=== PATIENT | female | born 1955 | race African-American/Black ===

== ENCOUNTER 2016-11-11 03:11 | Inpatient (IN) | payer MEDICAID ==
[2016-11-11] VITALS (7 sets, daily range): BP systolic 116–148; BP diastolic 50–101
[~2016-11-11] VITALS: Ht 160 cm; Wt 74.8 kg
[~2016-11-11 03:11] MED LIST: ADVAIR 250-501 EACH INH; ALBUTEROL SULF8.5 GM INH; PREDNISONE20 MG ORAL
[2016-11-11] MEDS ORDERED: Ipratropium 0.02% Inh Soln 2.5ml UD HHN ONE (03:15)
[2016-11-11] MEDS ORDERED: Solu-MEDROL 125mg Inj IVP ONE (03:15)
[2016-11-11] MEDS ORDERED: fentaNYL 100 mcg/2 mL IV ONE ×2 (03:15→04:00)
--- NOTE | 2016-11-11 03:19 | Emergency Room Report ---
History of Present Illness General Chief Complaint: Asthma Source: Patient, EMS Present Illness HPI Patient presents with dyspnea. She is extremely short of breath in the field. Paramedics started giving her albuterol. They're considering using CPAP. This is the worst she has ever been. She's never been intubated in the past. She does get relief with steroids. She has prednisone at home but will not answer whether she is taking it or not. She complains that the back pain is 10/10 and is more when she is coughing. Also positional. She's had severe dyspnea on exertion through the day today. She's been using her albuterol at home. No NVD, joint pain, BAIN, dizziness, chest pain per se, dysuria. She does not want to be admitted to the hospital. She usually gets care in [place]. Allergies: Coded Allergies: PENICILLINS (Verified Allergy, Unknown, 11/11/16) Patient History Past Medical History: see triage record Social History: Denies: smoking Social History Narrative from [place] Now: No Reviewed Nursing Documentation: PMH: Agreed, PSxH: Agreed Nursing Documentation-PMH Hx Hypertension: Yes Hx Asthma: Yes Hx Diabetes: Yes Review of Systems All Other Systems: negative except mentioned in HPI Physical Exam Vital Signs Date Time Temp Pulse Resp B/P Pulse Ox O2 Delivery O2 Flow Rate FiO2 11/11/16 03:09 110 22 174/90 99 Room Air Sp02 EP Interpretation: reviewed, normal General Appearance: well appearing, GCS 15, mild distress Head: normocephalic Eyes: bilateral eye normal inspection ENT: moist mucus membranes Neck: supple Respiratory: accessory muscle use, wheezing, expiration, inspiration Cardiovascular #1: regular rate, rhythm, no edema Cardiovascular #2: 2+ radial (R) Gastrointestinal: normal inspection, normal bowel sounds, non tender, no mass, non-distended Musculoskeletal: back normal, gait/station normal, normal range of motion, no calf tenderness Neurologic: alert, oriented x3, grossly normal Psychiatric: mood/affect normal Skin: normal inspection, warm/dry Procedures Critical Care Time Critical Care Time Total time: 30 min bedside evaluation and treatment excludes procedures (EKG). Reason for critical care: status asthmaticus, hyperglycemia Possible complications: hypotension, hypertension, CT, shock, arrhythmias, metabolic acidosis, end organ damage, respiratory failure. Interventions:breathing treatments, magnesium, analgesia, repeated evaluations Course: Patient with worst asthma attack. Aggressive treatment initiated. Repeat eval with need for further treatment. Magnesium low - initiation of replacement. Repeat evaluation with some improvement. Elevated glucose addressed and treated. Consultations: nursing staff, EMS, admitting MD and lab Performed by: Dr. Montanez Tolerated well condition = serious Medical Decision Making Diagnostic Impression: Primary Impression: Status asthmaticus Qualified Codes: J45.52 - Severe persistent asthma with status asthmaticus Additional Impression: Hyperglycemia ER Course Patient presents with worst asthma atack. Ddx: asthma, pneumonia, bronchitis, AMI amongst others. Emergent evaluation and treatment indicated. Labs, EKG, CXR ordered. Aggressive treatment initiated. Patient started to worsen here. Treatments in process. Fentanyl given with some improvement. BP better. Paroxysms of cough with continued wheezing. Calling lab for magnesium. Low magnesium - ordered IV with repeated breathing treatments. Patient still with significant wheezing and cough. Needs admission tele. Admit Dr. Colin. Improved with aggressive treatment, resting. Still some wheezes. Glucose treated. Laboratory Tests Test 11/11/16 03:23 11/11/16 03:50 11/11/16 04:26 11/11/16 05:50 White Blood Count 5.5 K/UL (4.8-10.8) Red Blood Count 4.63 M/UL (4.20-5.40) Hemoglobin 13.7 G/DL (12.0-16.0) Hematocrit 39.7 % (37.0-47.0) Mean Corpuscular Volume 86 FL (80-99) Mean Corpuscular Hemoglobin 29.6 PG (27.0-31.0) Mean Corpuscular Hemoglobin Concent 34.5 G/DL (32.0-36.0) Red Cell Distribution Width 10.7 % (11.6-14.8) L Platelet Count 242 K/UL (150-450) Mean Platelet Volume 5.6 FL (6.5-10.1) L Neutrophils (%) (Auto) 33.7 % (45.0-75.0) L Lymphocytes (%) (Auto) 54.2 % (20.0-45.0) H Monocytes (%) (Auto) 6.6 % (1.0-10.0) Eosinophils (%) (Auto) 4.5 % (0.0-3.0) H Basophils (%) (Auto) 1.0 % (0.0-2.0) Prothrombin Time 10.0 SEC (9.30-11.50) Prothrombin Time INR 1.0 (0.9-1.1) PTT 25 SEC (23-33) Sodium Level 138 mEQ/L (135-145) Potassium Level 3.4 mEQ/L (3.4-4.9) Chloride Level 95 mEQ/L (98-107) L Carbon Dioxide Level 25 mEQ/L (20-30) Anion Gap 18 (5-15) H Blood Urea Nitrogen 12 mg/dL (7-23) Creatinine 0.8 mg/dL (0.5-0.9) Estimate Glomerular Filtration Rate > 60 mL/min (>60) Glucose Level 355 mg/dL (74-106) H Calcium Level 9.3 mg/dL (8.6-10.2) Magnesium Level 1.6 mg/dL (1.7-2.5) L Total Bilirubin 0.4 mg/dL (0.0-1.2) Aspartate Amino Transferase (AST) 39 U/L (5-40) Alanine Aminotransferase (ALT) 53 U/L (3-33) H Alkaline Phosphatase 69 U/L (35-104) Total Creatine Kinase 114 U/L (26-140) Troponin I < 0.30 ng/mL (<=0.30) Pro-B-Type Natriuretic Peptide 47 pg/mL (0-125) Total Protein 7.5 g/dL (6.6-8.7) Albumin 4.3 g/dL (3.5-5.2) Globulin 3.2 g/dL Albumin/Globulin Ratio 1.3 (1.0-2.7) Lactic Acid Level 2.70 mmol/L (0.66-2.22) H 6.50 mmol/L (0.66-2.22) H Urine Color Yellow Urine Appearance Clear Urine pH 6.5 (4.5-8.0) Urine Specific Ranson 1.010 (1.005-1.035) Urine Protein Negative (NEGATIVE) Urine Glucose (UA) 4+ (NEGATIVE) H Urine Ketones Negative (NEGATIVE) Urine Occult Blood 1+ (NEGATIVE) H Urine Nitrite Negative (NEGATIVE) Urine Bilirubin Negative (NEGATIVE) Urine Urobilinogen Normal MG/DL (0.0-1.0) Urine Leukocyte Esterase 2+ (NEGATIVE) H Urine RBC 2-4 /HPF (0 - 2) H Urine WBC 5-10 /HPF (0 - 2) H Urine Squamous Epithelial Cells Few /LPF (NONE/OCC) Urine Bacteria Few /HPF (NONE) Test 11/12/16 09:25 White Blood Count 15.3 K/UL (4.8-10.8) #H Red Blood Count 4.22 M/UL (4.20-5.40) Hemoglobin 12.7 G/DL (12.0-16.0) Hematocrit 36.9 % (37.0-47.0) L Mean Corpuscular Volume 87 FL (80-99) Mean Corpuscular Hemoglobin 30.2 PG (27.0-31.0) Mean Corpuscular Hemoglobin Concent 34.6 G/DL (32.0-36.0) Red Cell Distribution Width 11.4 % (11.6-14.8) L Platelet Count 233 K/UL (150-450) Mean Platelet Volume 5.5 FL (6.5-10.1) L Neutrophils (%) (Auto) % (45.0-75.0) Lymphocytes (%) (Auto) % (20.0-45.0) Monocytes (%) (Auto) % (1.0-10.0) Eosinophils (%) (Auto) % (0.0-3.0) Basophils (%) (Auto) % (0.0-2.0) Differential Total Cells Counted 100 Neutrophils % (Manual) 86 % (45-75) H Lymphocytes % (Manual) 5 % (20-45) L Monocytes % (Manual) 6 % (1-10) Eosinophils % (Manual) 0 % (0-3) Basophils % (Manual) 0 % (0-2) Band Neutrophils 3 % (0-8) Platelet Estimate Adequate Platelet Morphology Normal Red Blood Cell Morphology Normal Sodium Level 133 mEQ/L (135-145) L Potassium Level 4.6 mEQ/L (3.4-4.9) Chloride Level 98 mEQ/L (98-107) Carbon Dioxide Level 17 mEQ/L (20-30) L Anion Gap 18 (5-15) H Blood Urea Nitrogen 21 mg/dL (7-23) Creatinine 1.1 mg/dL (0.5-0.9) H Estimate Glomerular Filtration Rate > 60 mL/min (>60) Glucose Level 307 mg/dL (74-106) H Calcium Level 9.1 mg/dL (8.6-10.2) Microbiology Date/Time Source Procedure Growth Status 11/12/16 05:00 Nose Influenza Types A,B Antigen (JOSE E) - Final Complete EKG Diagnostic Results Rate: normal Rhythm: NSR ST Segments: no acute changes Rhythm Strip Diag. Results EP Interpretation: yes Rhythm: NSR, no PVC's, no ectopy Chest X-Ray Diagnostic Results EP Interpretation: Yes Findings: no consolidation, no effusion, no pneumothorax, other - COPD Number of Views: 1 Status: improved Disposition: ADMITTED INPATIENT Condition: Serious Mynor Montanez M.D. Nov 11, 2016 03:19
[2016-11-11] MEDS ORDERED: TRIAMCINOLONE A15 GM TP (03:31)
[2016-11-11] MEDS ORDERED: METFORMIN HCL1000 M1 ORAL (03:31)
[2016-11-11] MEDS ORDERED: NEURONTIN400 MG ORAL (03:31)
[2016-11-11] MEDS ORDERED: QVAR7.3 G2 ORAL (03:31)
[2016-11-11] MEDS ORDERED: ASPIRIN81 MG ORAL (03:31)
[2016-11-11] MEDS ORDERED: METOPROLOL TART25 MG ORAL (03:31)
[2016-11-11] MEDS ORDERED: TRAMADOL HCL50 MG ORAL (03:31)
[2016-11-11] MEDS ORDERED: AMITRIPTYLINE100 MG ORAL (03:31)
[2016-11-11] MEDS ORDERED: BENADRYL25 MG ORAL (03:31)
[2016-11-11] MEDS ORDERED: GLIPIZIDE5 MG ORAL (03:31)
[2016-11-11] MEDS ORDERED: PROAIR HFA8.5 GM INH (03:31)
[2016-11-11] MEDS ORDERED: NOVOLOG100 UNIT/3 SUBQ (03:31)
[2016-11-11] MEDS ORDERED: LANTUS SOL100 UNIT/1 SUBQ (03:31)
[2016-11-11] MEDS ORDERED: OMEPRAZOLE20 M2 ORAL (03:31)
[2016-11-11] MEDS ORDERED: DUONEB 0.5-3(2.53 ML HHN (03:31)
[2016-11-11] MEDS ORDERED: HYDROCHLOROTH12.5 M2 ORAL (03:31)
[2016-11-11] MEDS ORDERED: CYCLOBENZAPRINE10 MG ORAL (03:31)
[2016-11-11] MEDS ORDERED: LOSARTAN POTASS50 MG ORAL (03:31)
[2016-11-11] MEDS ORDERED: IBUPROFEN600 MG ORAL (03:31)
[2016-11-11] MEDS ORDERED: QVAR7.3 G2 IH (03:32)
[2016-11-11] MEDS: Albuterol ud Inhalation HHN SCH ×6 (03:32→05:31)
[2016-11-11 03:47] LABS: EOSINOPHILS % (AUTO) 4.5 % (0.0-3.0); LYMPHOCYTES % (AUTO) 54.2 % (20.0-45.0); MEAN CORPUSCULAR HEMOGLOBIN 29.6 PG (27.0-31.0); MEAN CORPUSCULAR HGB CONC 34.5 G/DL (32.0-36.0); MEAN CORPUSCULAR VOLUME 86 FL (80-99); MEAN PLATELET VOLUME 5.6 FL (6.5-10.1); MONOCYTES % (AUTO) 6.6 % (1.0-10.0); NEUTROPHILS % (AUTO) 33.7 % (45.0-75.0); PLATELET COUNT 242 K/UL (150-450); RED BLOOD COUNT 4.63 M/UL (4.20-5.40); RED CELL DISTRIBUTION WIDTH 10.7 % (11.6-14.8); WHITE BLOOD COUNT 5.5 K/UL (4.8-10.8)
[2016-11-11 04:05] LABS: ALANINE AMINOTRANSFERASE 53 U/L (3-33); ALBUMIN/GLOBULIN RATIO 1.3 (1.0-2.7); ANION GAP 18 (5-15); ASPARTATE AMINO TRANSFERASE 39 U/L (5-40); CALCIUM 9.3 mg/dL (8.6-10.2); CARBON DIOXIDE 25 mEQ/L (20-30); CHLORIDE 95 mEQ/L (98-107); CREATININE 0.8 mg/dL (0.5-0.9); GLOMERULAR FILTRATION RATE > 60 mL/min (>60); HEMOLYSIS 68; POTASSIUM 3.4 mEQ/L (3.4-4.9); SODIUM 138 mEQ/L (135-145); TOTAL PROTEIN 7.5 g/dL (6.6-8.7)
[2016-11-11 04:20] LABS: REFLEX LACTIC ACID YES OR NO YES
[2016-11-11 04:24] LABS: TROPONIN I < 0.30 ng/mL (<=0.30)
[2016-11-11 05:04] LABS: APPEARANCE,URINE CLEAR; KETONES,URINE NEGATIVE (NEGATIVE); LEUKOCYTE ESTERASE ,URINE 2+ (NEGATIVE); NITRITE,URINE NEGATIVE (NEGATIVE); PH,URINE 6.5 (4.5-8.0); PROTEIN,URINE NEGATIVE (NEGATIVE); UROBILINOGEN,URINE NORMAL MG/DL (0.0-1.0)
[2016-11-11] MEDS ORDERED: Levemir Flexpen SUBQ STA ×2 (05:17→07:20)
[2016-11-11 05:19] LABS: BACTERIA,URINE FEW /HPF; SQUAMOUS EPITHELIAL CELL,UR FEW /LPF (NONE/OCC)
[2016-11-11] MEDS ORDERED: traMADol 50mg tab ORAL PRN ×2 (06:00→09:00)
[2016-11-11] MEDS ORDERED: Miralax 17gm pkt ORAL PRN (06:00)
[2016-11-11] MEDS: Solu-MEDROL 125mg Inj IVP SCH ×3 (06:46→21:03)
[2016-11-11] MEDS: DuoNeb 0.5-3(2.5)mg/3ml neb HHN SCH ×4 (07:49→19:00)
[2016-11-11] MEDS ORDERED: metFORMIN 500mg tab ORAL SCH (09:00)
[2016-11-11] MEDS ORDERED: Losartan 50mg tab ORAL SCH (09:00)
[2016-11-11] MEDS ORDERED: Heparin 5000 units/ml inj SUBQ SCH (09:00)
[2016-11-11] MEDS ORDERED: Aspirin Baby 81mg ORAL SCH (09:00)
[2016-11-11] MEDS ORDERED: Docusate 100mg cap ORAL SCH (09:00)
[2016-11-11] MEDS: Cyclobenzaprine 10mg Tab ORAL SCH ×4 (09:11→18:10)
[2016-11-11] MEDS ORDERED: QVAR 80mcg Inh - 8.7gm INH SCH (10:00)
[2016-11-11] MEDS ORDERED: Azithromycin 250mg tab ORAL SCH (10:00)
[2016-11-11] MEDS ORDERED: GlipiZIDE 5mg tab ORAL SCH (10:00)
[2016-11-11] MEDS ORDERED: Triamcinolone 0.1% 15gm Cr TOPIC SCH (10:30)
[2016-11-11] MEDS ORDERED: NovoLOG Insulin Flexpen SUBQ SCH (11:30)
[2016-11-11] MEDS: POTASSIUM CHLORIDE IV SCH ×5 (11:59→15:36)
[2016-11-11] MEDS: MAGNESIUM SULFATE IV SCH ×5 (11:59→15:36)
[2016-11-11] MEDS: 1/2 NS IV SCH ×5 (11:59→15:36)
[2016-11-11] MEDS ORDERED: DuoNeb 0.5-3(2.5)mg/3ml neb ONE (15:10)
[2016-11-11] MEDS: Levemir Flexpen SUBQ SCH (16:50)
[2016-11-11] MEDS: NovoLOG Insulin Flexpen SUBQ SCH ×3 (16:50→20:49)
[2016-11-11] MEDS: GlipiZIDE 10mg tab ORAL SCH (16:59)
[2016-11-11] MEDS: Triamcinolone 0.1% 15gm Cr TOPIC SCH (18:00)
[2016-11-11] MEDS: QVAR 80mcg Inh - 8.7gm INH SCH (18:07)
--- NOTE | 2016-11-11 20:17 | History and Physical Report ---
DATE OF ADMISSION: 11/11/2016 CHIEF COMPLAINT AND REASON FOR OBSERVATION: The patient admitted with asthma, wheezing, status asthmaticus and generalized discomfort. HISTORY OF PRESENT ILLNESS: The patient has a long history of asthma. She was taking inhalers and nebulizers and started on prednisone for a day or two prior to admission, but continued wheezing, coughing and feeling bad and came to the emergency room, was felt to be in status asthmaticus and admitted. PAST MEDICAL HISTORY: The patient has a history of obesity, osteoarthritis, sciatica, chronic pain, insulin-dependent diabetes, hypertension. PAST SURGICAL HISTORY: Hysterectomy, gallbladder, and appendix. MEDICATIONS: Prior to admission medications include Lantus 50 units two times a day, NovoLog 30 units three times a day, albuterol via inhalation by HHN and inhaler, amitriptyline, aspirin, QVAR, Flexeril, Benadryl, Advair, gabapentin, glipizide, hydrochlorothiazide, ibuprofen, Duo-Neb by inhalation, losartan, metformin, omeprazole, prednisone, tramadol, and triamcinolone cream. ALLERGIES: She says penicillin causes yeast infections. REVIEW OF SYSTEMS: HEENT: The patient's hearing is good. Endocrine: History of diabetes and obesity. No known thyroid disease. Pulmonary: See above. No known TB. Cardiac: No definite angina, FL or CHF. Gastrointestinal: No GI bleeding or ulcers. She has had some gastritis intermittently. Genitourinary: No dysuria, hematuria, or kidney stones. Neurologic: No CVA, syncope or seizures. Musculoskeletal: History of chronic pain in the joints and back pain. PHYSICAL EXAMINATION: GENERAL: The patient is alert, oriented, and in no acute distress. She has a dry cough. VITAL SIGNS: Temperature 98 degrees, pulse 106, respirations 19, blood pressure 116/87, pulse oximetry 96% on room air. HEENT: Sclerae are nonicteric. Ocular motions intact in all directions. Oral mucosa moist. NECK: No adenopathy or thyroid enlargement. LUNGS: Bilateral wheezing. She has a dry cough, but no severe distress. HEART: Rhythm is regular. No murmur. ABDOMEN: Obese and soft without organomegaly or masses. EXTREMITIES: No edema, cyanosis, or clubbing. No swollen joints. NEUROLOGIC: She is alert and oriented. Cranial nerves are intact. LABORATORY AND DIAGNOSTIC DATA: Pertinent labs show white count of 5.5 and hemoglobin of 13.7. Glucose 355, potassium is 3.4, and creatinine 0.8. Lactic acid is 2.7 and 6.50. BNP is 47. Chest x-ray, no active disease. IMPRESSION: 1. Asthma exacerbation, status asthmaticus. 2. Insulin-dependent diabetes, hyperglycemia. 3. Hypertension. 4. Chronic pain syndrome, now osteoarthritis. 5. Generalized weakness secondary to above. 6. Elevated lactic acid secondary to her asthma. PLAN: The patient will be watched closely. She will be given high-dose steroids, monitor insulin, nebulizer treatment, and comfort measures. Detailed orders written. Tomas Hector M.D. DR: IVY JOB#: [id number] CC:
[2016-11-11] MEDS: Docusate 100mg cap ORAL SCH (20:46)
[2016-11-11] MEDS: Heparin 5000 units/ml inj SUBQ SCH (20:47)
[2016-11-11] MEDS: traMADol 50mg tab ORAL PRN (21:03)
[2016-11-11] MEDS ORDERED: Solu-MEDROL 125mg Inj IVP SCH (22:00)
[2016-11-12] VITALS (7 sets, daily range): BP systolic 112–148; BP diastolic 66–82
[2016-11-12] MEDS: DuoNeb 0.5-3(2.5)mg/3ml neb HHN SCH ×7 (00:17→23:42)
[2016-11-12] MEDS: 1/2 NS IV SCH (01:32)
[2016-11-12] MEDS: MAGNESIUM SULFATE IV SCH (01:32)
[2016-11-12] MEDS: POTASSIUM CHLORIDE IV SCH (01:32)
[2016-11-12] MEDS ORDERED: Miralax 17gm pkt ORAL PRN (06:00)
[2016-11-12] MEDS: GlipiZIDE 10mg tab ORAL SCH ×2 (06:22→18:11)
[2016-11-12] MEDS: Solu-MEDROL 125mg Inj IVP SCH (06:22)
[2016-11-12] MEDS: NovoLOG Insulin Flexpen SUBQ SCH ×6 (06:30→21:24)
[2016-11-12] MEDS: Levemir Flexpen SUBQ SCH ×2 (06:33→18:01)
[2016-11-12] MEDS: Triamcinolone 0.1% 15gm Cr TOPIC SCH ×2 (08:50→18:00)
[2016-11-12] MEDS: QVAR 80mcg Inh - 8.7gm INH SCH ×2 (09:00→18:00)
--- NOTE | 2016-11-12 09:52 | Consultation ---
Consult Note Consult Note Patient: MAYELIN CANELA [facility] Rec #: [id number] Patient No.: [id number] Date of Service: 11/11/16 DATE OF CONSULT: 11/12/2016 REASON FOR CONSULT: Asthma, wheezing, status asthmaticus. HISTORY OF PRESENT ILLNESS: The patient has a long history of asthma. She was taking inhalers and nebulizers and started on prednisone for a day or two prior to admission, but continued wheezing, coughing and feeling bad and came to the emergency room, was felt to be in status asthmaticus and admitted. PAST MEDICAL HISTORY: The patient has a history of obesity, osteoarthritis, sciatica, chronic pain, insulin-dependent diabetes, hypertension. PAST SURGICAL HISTORY: Hysterectomy, gallbladder, and appendix. MEDICATIONS: Prior to admission medications include Lantus 50 units two times a day, NovoLog 30 units three times a day, albuterol via inhalation by HHN and inhaler, amitriptyline, aspirin, QVAR, Flexeril, Benadryl, Advair, gabapentin, glipizide, hydrochlorothiazide, ibuprofen, Duo-Neb by inhalation, losartan, metformin, omeprazole, prednisone, tramadol, and triamcinolone cream. PMH Diabetes Asthma ALLERGIES: PCN REVIEW OF SYSTEMS: HEENT: None Endocrine: History of diabetes and obesity. No known thyroid disease. Pulmonary: See above. No known TB. Cardiac: No definite angina, [place] or CHF. Gastrointestinal: No GI bleeding or ulcers. She has had some gastritis intermittently. Genitourinary: No dysuria, hematuria, or kidney stones. Neurologic: No CVA, syncope or seizures. Musculoskeletal: History of chronic pain in the joints and back pain. PHYSICAL EXAMINATION: GENERAL: The patient is alert, oriented, and in no acute distress. She has a dry cough. VITAL SIGNS: Temperature 98 degrees, pulse 106, respirations 19, blood pressure 116/87, pulse oximetry 96% on room air. HEENT: Sclerae are nonicteric. Ocular motions intact in all directions. Oral mucosa moist. NECK: No adenopathy or thyroid enlargement. LUNGS: Bilateral wheezing. She has a dry cough, but no severe distress. HEART: Rhythm is regular. No murmur. ABDOMEN: Obese and soft without organomegaly or masses. EXTREMITIES: No edema, cyanosis, or clubbing. No swollen joints. NEUROLOGIC: She is alert and oriented. Cranial nerves are intact. LABORATORY AND DIAGNOSTIC DATA: Pertinent labs show white count of 5.5 and hemoglobin of 13.7. Glucose 355, potassium is 3.4, and creatinine 0.8. Lactic acid is 2.7 and 6.50. BNP is 47. Chest x-ray, no active disease. IMPRESSION: 1. Asthma exacerbation, acute 2. Insulin-dependent diabetes, hyperglycemia. 3. Hypertension. 4. Chronic pain syndrome, now osteoarthritis. PLAN: Agree with steroids, monitor insulin, nebulizer treatment, and comfort measures. Will follow Jem Dominique MD Nov 12, 2016 09:52
[2016-11-12 10:07] LABS: MEAN CORPUSCULAR HEMOGLOBIN 30.2 PG (27.0-31.0); MEAN CORPUSCULAR HGB CONC 34.6 G/DL (32.0-36.0); MEAN CORPUSCULAR VOLUME 87 FL (80-99); MEAN PLATELET VOLUME 5.5 FL (6.5-10.1); PLATELET COUNT 233 K/UL (150-450); RED BLOOD COUNT 4.22 M/UL (4.20-5.40); RED CELL DISTRIBUTION WIDTH 11.4 % (11.6-14.8); WHITE BLOOD COUNT 15.3 K/UL (4.8-10.8)
[2016-11-12 10:14] LABS: ANION GAP 18 (5-15); CALCIUM 9.1 mg/dL (8.6-10.2); CARBON DIOXIDE 17 mEQ/L (20-30); CHLORIDE 98 mEQ/L (98-107); CREATININE 1.1 mg/dL (0.5-0.9); GLOMERULAR FILTRATION RATE > 60 mL/min (>60); HEMOLYSIS 2; POTASSIUM 4.6 mEQ/L (3.4-4.9); SODIUM 133 mEQ/L (135-145)
[2016-11-12 10:49] LABS: BAND NEUTROPHILS % (MANUAL) 3 % (0-8); LYMPHOCYTES % (MANUAL) 5 % (20-45); NEUTROPHILS % (MANUAL) 86 % (45-75); TOTAL CELLS COUNTED 100
[2016-11-12 10:50] LABS: BASOPHILS % (MANUAL) 0 % (0-2); EOSINOPHILS % (MANUAL) 0 % (0-3); PLATELET ESTIMATE ADEQUATE; PLATELET MORPHOLOGY NORMAL
[2016-11-12] MEDS: Losartan 50mg tab ORAL SCH (11:10)
[2016-11-12] MEDS: Aspirin Baby 81mg ORAL SCH (11:11)
[2016-11-12] MEDS: Docusate 100mg cap ORAL SCH ×2 (11:11→21:26)
[2016-11-12] MEDS: Azithromycin 250mg tab ORAL SCH (11:12)
[2016-11-12] MEDS: traMADol 50mg tab ORAL PRN ×2 (11:14→21:37)
[2016-11-12] MEDS: Heparin 5000 units/ml inj SUBQ SCH ×2 (11:17→21:25)
[2016-11-12] MEDS: Cyclobenzaprine 10mg Tab ORAL SCH ×2 (11:19→19:11)
[2016-11-12] MEDS: metFORMIN 500mg tab ORAL SCH (11:24)
--- NOTE | 2016-11-12 12:35 | General Progress Note ---
Assessment/Plan Problem List: (1) Diabetes ICD Codes: E11.9 - Type 2 diabetes mellitus without complications SNOMED: 62664580 (2) Obesity ICD Codes: E66.9 - Obesity, unspecified SNOMED: 474051043 (3) Low back pain ICD Codes: M54.5 - Low back pain SNOMED: 160645100 (4) Hypertension ICD Codes: I10 - Essential (primary) hypertension SNOMED: 84069014 (5) Hyperglycemia ICD Codes: R73.9 - Hyperglycemia, unspecified SNOMED: 83762618 (6) Status asthmaticus ICD Codes: J45.902 - Unspecified asthma with status asthmaticus SNOMED: 602221910 Assessment/Plan continue steroidsss insulin , hhn Subjective Constitutional: Reports: weakness HEENT: Reports: no symptoms Cardiovascular: Reports: no symptoms Respiratory: Reports: shortness of breath Gastrointestinal/Abdominal: Reports: no symptoms Genitourinary: Reports: no symptoms Neurologic/Psychiatric: Reports: no symptoms Endocrine: Reports: no symptoms Hematologic/Lymphatic: Reports: no symptoms Allergies: Coded Allergies: PENICILLINS (Verified Allergy, Unknown, 11/11/16) Objective Last 24 Hour Vital Signs Date Time Temp Pulse Resp B/P Pulse Ox O2 Delivery O2 Flow Rate FiO2 11/12/16 12:11 97.9 101 18 116/81 96 Room Air 11/12/16 11:10 150/86 11/12/16 08:48 97.2 101 18 127/66 97 Room Air 11/12/16 08:00 102 11/12/16 08:00 97.0 100 20 120/66 97 Room Air 11/12/16 07:03 93 19 97 Room Air 11/12/16 06:48 90 18 97 Room Air 11/12/16 06:48 21 11/12/16 06:48 90 18 Room Air 11/12/16 04:00 97.3 79 20 112/67 96 Room Air 11/12/16 04:00 91 11/12/16 03:26 88 20 97 Room Air 21 11/12/16 03:20 82 20 94 Room Air 11/12/16 00:00 97.5 88 22 127/73 96 Room Air 11/11/16 23:40 90 20 98 Room Air 11/11/16 23:37 82 11/11/16 23:30 88 20 95 Room Air 21 11/11/16 22:02 97.8 11/11/16 21:00 102 121/76 11/11/16 20:00 98.4 100 18 116/71 97 Room Air 11/11/16 20:00 100 11/11/16 19:40 94 20 99 Room Air 21 11/11/16 19:30 100 20 97 Room Air 21 11/11/16 19:30 90 20 Room Air 21 11/11/16 19:09 97.8 11/11/16 16:00 98.7 109 18 118/87 96 Room Air 11/11/16 16:00 109 11/11/16 15:34 99 18 99 Room Air 21 11/11/16 15:19 102 20 97 Room Air 21 11/11/16 15:19 21 11/11/16 14:25 97.0 11/11/16 12:47 98.0 106 19 116/87 96 Room Air 21 11/11/16 12:39 98.0 106 19 116/87 96 Room Air Intake and Output 11/11/16 11/12/16 19:00 07:00 Intake Total 300 ml 560 ml Balance 300 ml 560 ml Intake Oral 300 ml 150 ml IV Total 410 ml # Voids 2 1 Laboratory Tests 11/12/16 09:25: White Blood Count 15.3#H, Red Blood Count 4.22, Hemoglobin 12.7, Hematocrit 36.9L, Mean Corpuscular Volume 87, Mean Corpuscular Hemoglobin 30.2, Mean Corpuscular Hemoglobin Concent 34.6, Red Cell Distribution Width 11.4L, Platelet Count 233, Mean Platelet Volume 5.5L, Neutrophils (%) (Auto) , Lymphocytes (%) (Auto) , Monocytes (%) (Auto) , Eosinophils (%) (Auto) , Basophils (%) (Auto) , Differential Total Cells Counted 100, Neutrophils % ( Manual) 86H, Lymphocytes % (Manual) 5L, Monocytes % (Manual) 6, Eosinophils % ( Manual) 0, Basophils % (Manual) 0, Band Neutrophils 3, Platelet Estimate Adequate, Platelet Morphology Normal, Red Blood Cell Morphology Normal, Sodium Level 133L, Potassium Level 4.6, Chloride Level 98, Carbon Dioxide Level 17L, Anion Gap 18H, Blood Urea Nitrogen 21, Creatinine 1.1H, Estimat Glomerular Filtration Rate > 60, Glucose Level 307H, Calcium Level 9.1 Height (Feet): 5 Height (Inches): 3.00 Weight (Pounds): 165 General Appearance: morbidly obese EENT: normal ENT inspection Neck: normal alignment Cardiovascular: regular rhythm Respiratory/Chest: rhonchi - bilaterally Abdomen: non tender, soft, no organomegaly Edema: no edema noted Arm (L), no edema noted Arm (R), no edema noted Leg (L), no edema noted Leg (R), no edema noted Pedal (L), no edema noted Pedal (R), no edema noted Generalized Skin: normal pigmentation MARILYN HARDY Nov 12, 2016 12:35
--- NOTE | 2016-11-12 15:56 | Cardiology Report ---
APPROVED REPORT EKG Measurement Heart [id number] WA [id number] [id number] Sinus rhythm with short WA Abnormal ECG
--- NOTE | 2016-11-12 15:59 | Diagnostic Imaging Report ---
Indication: COUGH Technique: Single portable AP view of the chest. Findings: Comparison: None. Thoracic aorta mildly elongated. The bones and extra pulmonary soft tissues, remainder of the cardiomediastinal silhouette, pulmonary vasculature and parenchyma, and pleural surfaces are unremarkable. IMPRESSION: No evidence of acute cardiopulmonary disease Probable mild chronic hypertensive change of the thoracic aorta.
[2016-11-13 00:22] VITALS: BP 122/73
[2016-11-13] MEDS: DuoNeb 0.5-3(2.5)mg/3ml neb HHN SCH ×4 (03:22→15:00)
[2016-11-13 04:16] VITALS: BP 101/64
[2016-11-13] MEDS: traMADol 50mg tab ORAL PRN (05:01)
[2016-11-13] MEDS: GlipiZIDE 10mg tab ORAL SCH (05:49)
[2016-11-13] MEDS: NovoLOG Insulin Flexpen SUBQ SCH ×4 (05:51→11:50)
[2016-11-13] MEDS: Levemir Flexpen SUBQ SCH (05:53)
[2016-11-13 08:08] VITALS: BP 115/70
[2016-11-13] MEDS: Docusate 100mg cap ORAL SCH (08:57)
[2016-11-13] MEDS: metFORMIN 500mg tab ORAL SCH (08:59)
[2016-11-13] MEDS: Azithromycin 250mg tab ORAL SCH (08:59)
[2016-11-13] MEDS ORDERED: Solu-MEDROL 125mg Inj IVP SCH (09:00)
[2016-11-13] MEDS: Heparin 5000 units/ml inj SUBQ SCH (09:00)
[2016-11-13] MEDS: Triamcinolone 0.1% 15gm Cr TOPIC SCH (09:00)
[2016-11-13] MEDS: Cyclobenzaprine 10mg Tab ORAL SCH ×2 (09:00→14:09)
[2016-11-13] MEDS: Aspirin Baby 81mg ORAL SCH (09:01)
[2016-11-13] MEDS: Losartan 50mg tab ORAL SCH (09:01)
[2016-11-13] MEDS: QVAR 80mcg Inh - 8.7gm INH SCH (09:30)
--- NOTE | 2016-11-13 09:54 | Pulmonology Progress Note ---
Assessment/Plan Assessment/Plan IMPRESSION: 1. Asthma exacerbation, acute 2. Insulin-dependent diabetes, hyperglycemia. 3. Hypertension. 4. Chronic pain syndrome, now osteoarthritis. PLAN: Agree with steroids, monitor insulin, nebulizer treatment, and comfort measures. Will follow Subjective Interval Events: Feeling better Constitutional: Reports: no symptoms HEENT: Repors: no symptoms Respiratory: Reports: no symptoms Cardiovascular: Reports: no symptoms Gastrointestinal/Abdominal: Reports: no symptoms Allergies: Coded Allergies: PENICILLINS (Verified Allergy, Unknown, 11/11/16) Objective Last 24 Hour Vital Signs Date Time Temp Pulse Resp B/P Pulse Ox O2 Delivery O2 Flow Rate FiO2 11/13/16 09:01 130/78 11/13/16 08:08 97.9 95 18 115/70 97 Room Air 11/13/16 08:07 87 11/13/16 07:30 86 16 96 Room Air 11/13/16 07:26 81 16 97 Room Air 11/13/16 07:15 81 16 Room Air 11/13/16 04:16 98.3 81 18 101/64 96 Room Air 11/13/16 03:29 84 16 98 Room Air 21 11/13/16 03:23 82 16 96 Room Air 21 11/13/16 00:22 97.9 78 19 122/73 96 Room Air 11/13/16 00:00 90 11/12/16 23:39 93 18 97 Room Air 21 11/12/16 23:29 93 16 97 Room Air 21 11/12/16 21:17 92 18 97 Room Air 21 11/12/16 21:08 92 18 97 Room Air 11/12/16 21:08 92 18 Room Air 11/12/16 20:00 92 11/12/16 20:00 97.8 103 20 148/82 96 Room Air 11/12/16 18:00 92 18 97 Room Air 11/12/16 16:30 102 11/12/16 16:00 97.9 104 20 126/68 97 Room Air 11/12/16 15:40 100 19 97 Room Air 21 11/12/16 15:25 98 19 97 Room Air 21 11/12/16 15:25 21 11/12/16 12:30 96.7 11/12/16 12:30 96.7 11/12/16 12:11 97.9 101 18 116/81 96 Room Air 11/12/16 11:43 99 19 100 Room Air 21 11/12/16 11:28 21 11/12/16 11:28 102 18 97 Room Air 21 11/12/16 11:10 150/86 Intake and Output 11/12/16 11/13/16 19:00 07:00 Intake Total 120 ml 260 ml Balance 120 ml 260 ml Intake Oral 120 ml 260 ml IV Total 0 ml # Voids 2 1 General Appearance: no acute distress HEENT: normocephalic Respiratory/Chest: chest wall non-tender, decreased breath sounds Cardiovascular: normal peripheral pulses Microbiology Date/Time Source Procedure Growth Status 11/11/16 03:30 Blood Blood Culture - Preliminary NO GROWTH AFTER 48 HOURS Resulted 11/11/16 03:30 Blood Blood Culture - Preliminary NO GROWTH AFTER 48 HOURS Resulted 11/12/16 05:00 Nose Influenza Types A,B Antigen (JOSE E) - Final Complete Current Medications Medications (Trade) Dose Ordered Sig/Chelsey Route PRN Reason Start Time Stop Time Status Last Admin Dose Admin Acetaminophen (Tylenol) 650 mg Q4H PRN ORAL Mild Pain (Pain Scale 1-3) 11/11/16 18:00 12/11/16 17:59 Acetaminophen (Tylenol) 650 mg Q4H PRN ORAL fever 11/11/16 18:00 12/11/16 17:59 Albuterol/ Ipratropium (DuoNeb 0.5-3(2.5)mg/3ml) 3 ml Q4HRT HHN 11/11/16 15:00 11/16/16 14:59 11/13/16 07:15 Amitriptyline HCl (Elavil) 25 mg BEDTIME ORAL 11/11/16 21:00 12/11/16 20:59 11/12/16 21:26 Aspirin (ASA) 81 mg DAILY ORAL 11/12/16 09:00 12/12/16 08:59 11/13/16 09:01 Azithromycin (Zithromax) 250 mg DAILY ORAL 11/12/16 09:00 11/17/16 08:59 11/13/16 08:59 Beclomethasone Dipropionate (Qvar 80) 2 puff BID INH 11/11/16 18:00 12/11/16 17:59 11/12/16 18:00 Bisacodyl (Dulcolax) 10 mg DAILYPRN PRN RECTAL Constipation 11/12/16 06:00 12/12/16 05:59 Cyclobenzaprine HCl (Flexeril) 10 mg THREE TIMES A DAY ORAL 11/11/16 18:00 12/11/16 17:59 11/13/16 09:00 Dextrose (Dextrose 50%) STAT PRN IV Hypoglycemia 11/12/16 06:00 12/12/16 05:59 Diphenhydramine HCl (Benadryl) 25 mg Q6H PRN ORAL Itching 11/11/16 18:00 12/11/16 17:59 Docusate Sodium (Colace) 100 mg EVERY 12 HOURS ORAL 11/11/16 21:00 12/11/16 20:59 11/13/16 08:57 Gabapentin (Neurontin) 300 mg TID ORAL 11/11/16 18:00 12/11/16 17:59 11/13/16 08:59 Glipizide (Glucotrol) 20 mg BIAC ORAL 11/12/16 16:30 12/12/16 16:29 11/13/16 05:49 Heparin Sodium (Porcine) (Heparin 5000 units/ml) 5,000 units EVERY 12 HOURS SUBQ 11/11/16 21:00 12/11/16 20:59 11/12/16 21:25 Hydrochlorothiazide (Hydrodiuril) 12.5 mg DAILY ORAL 11/12/16 09:00 12/12/16 08:59 11/13/16 08:59 Ibuprofen (Motrin) 800 mg Q8H PRN ORAL Mild Pain (Pain Scale 1-3) 11/11/16 14:45 12/11/16 14:44 Insulin Aspart (NovoLOG) BEFORE MEALS AND HS SUBQ 11/11/16 16:30 12/11/16 16:29 11/13/16 05:51 Insulin Aspart (NovoLOG) 46 units NOVOTIAC SUBQ 11/12/16 16:50 12/12/16 16:49 11/13/16 06:39 Insulin Detemir (Levemir) 70 units BIAC SUBQ 11/12/16 16:30 12/12/16 16:29 11/13/16 05:53 Losartan Potassium (Cozaar) 50 mg DAILY ORAL 11/12/16 09:00 12/12/16 08:59 11/13/16 09:01 Metformin HCl (Glucophage) 1,000 mg DAILY ORAL 11/12/16 09:00 12/12/16 08:59 11/13/16 08:59 Methylprednisolone Sodium Succinate (Solu-MEDROL) 40 mg DAILY IVP 11/13/16 09:00 12/13/16 08:59 11/13/16 09:02 Pantoprazole (Protonix) 40 mg ACBREAKFAST ORAL 11/12/16 06:30 12/12/16 06:29 11/13/16 05:48 Polyethylene Glycol (Miralax) 17 gm DAILYPRN PRN ORAL Constipation 11/12/16 06:00 12/12/16 05:59 Tramadol HCl (Ultram) 50 mg Q6H PRN ORAL Severe Breakthru Pain (>7) 11/11/16 15:00 11/18/16 14:59 11/13/16 05:01 Triamcinolone Acetonide (Kenalog) 1 applic BID TOPIC 11/11/16 18:00 12/11/16 17:59 Jem Dominique MD Nov 13, 2016 09:54
[2016-11-13 12:20] VITALS: BP 118/76
[2016-11-13 16:00] VITALS: BP 112/62
[2016-11-13] MEDS ORDERED: Sterile Water Irrig 1000ml IRRIG ONE (18:24)
--- NOTE | 2016-11-14 04:47 | Discharge Summary ---
DATE OF ADMISSION: 11/11/2016 DATE OF DISCHARGE: 11/13/2016 PERTINENT HISTORY: The patient presents with asthma exacerbation despite medications at home. PERTINENT PHYSICAL FINDINGS: GENERAL: She is alert and oriented. She has dry cough. LUNGS: Showed bilateral wheezing. HEART: Regular rhythm. ABDOMEN: Soft and obese. EXTREMITIES: No edema. NEUROLOGIC: She is alert and oriented. COURSE IN THE HOSPITAL: The patient was treated with high-dose steroids, nebulizer treatment, and empiric antibiotics. Chest x-ray was negative. Her pulse oximetry was normal. Her wheezing improved. Her glucose is elevated and insulin was adjusted. The patient had elevated lactic acid, but no clinical sepsis and with the above treatment, she felt much better. On the day of discharge, she is in no distress. Lungs have very faint wheezing. No distress. Heart, regular rhythm. Abdomen soft. Extremities some edema. She was discharged home in stable condition. FINAL DIAGNOSES: 1. Status asthmaticus. 2. Insulin-dependent diabetes with hyperglycemia due to steroids. 3. Hypertension. 4. Chronic pain syndrome. 5. Osteoarthritis. 6. Elevated lactic acid, secondary to asthma. DISCHARGE DISPOSITION: Home on her usual medicine. I instructed to take the prednisone 40 mg daily for three more days. We will watch her sugars and give sliding scale insulin. Follow up with the primary care physician. Tomas Hector M.D. DR: iVckey JOB#: [id number] CC:
== END 2016-11-13 18:25 | disposition home or self-care (01) | DRG 141 ==
LOC: EDBD 03:11 → EDSEX 03:11 → EMR 03:18 → EDBEDREQ 03:20 → 2W 03:35 → EDBEDREQ 12:12 → 2E 11-12 08:36
DX: J45.902 Unspecified asthma with status asthmaticus (principal); E09.65 Drug or chemical induced diabetes mellitus with hyperglycemia; I10 Essential (primary) hypertension; E66.9 Obesity, unspecified; M54.5 Low back pain; M19.90 Unspecified osteoarthritis, unspecified site; G89.4 Chronic pain syndrome; T38.0X5A Adverse effect of glucocorticoids and synthetic analogues, initial encounter; Y92.89 Other specified places as the place of occurrence of the external cause; Z79.4 Long term (current) use of insulin
CPT/HCPCS: 36415; 71010; 80048; 80053; 81003; 82550; 82962; 83605; 83735; 83880; 84484; 85007; 85025; 85610; 85730; 86710; 87040; 93005; 94640; 94664; J1815; J2405; J7620; S5561

== ENCOUNTER 2016-12-08 15:07 | Inpatient (IN) | payer MEDICAID ==
[~2016-12-08] VITALS: Ht 154.9 cm; Wt 72.6 kg
[~2016-12-08 15:07] MED LIST changes: +AMITRIPTYLINE100 MG ORAL; +ASPIRIN81 MG ORAL; +BENADRYL25 MG ORAL; +CYCLOBENZAPRINE10 MG ORAL; +DUONEB 0.5-3(2.53 ML HHN; +GLIPIZIDE5 MG ORAL; +HYDROCHLOROTH12.5 M2 ORAL; +IBUPROFEN600 MG ORAL; +LANTUS SOL100 UNIT/1 SUBQ; +LOSARTAN POTASS50 MG ORAL; +METFORMIN HCL1000 M1 ORAL; +METOPROLOL TART25 MG ORAL; +NEURONTIN400 MG ORAL; +NOVOLOG100 UNIT/3 SUBQ; +OMEPRAZOLE20 M2 ORAL; +PROAIR HFA8.5 GM INH; +QVAR7.3 G2 IH; +QVAR7.3 G2 ORAL; +TRAMADOL HCL50 MG ORAL; +TRIAMCINOLONE A15 GM TP
[2016-12-08 15:22] VITALS: BP 169/104
[2016-12-08] MEDS ORDERED: Ipratropium 0.02% Inh Soln 2.5ml UD HHN ONE (15:30)
[2016-12-08] MEDS ORDERED: Solu-MEDROL 125mg Inj IVP ONE (15:30)
[2016-12-08] MEDS ORDERED: Albuterol ud Inhalation HHN ONE (15:30)
[2016-12-08 16:19] LABS: BASOPHILS % (AUTO) 1.2 % (0.0-2.0); EOSINOPHILS % (AUTO) 0.8 % (0.0-3.0); LYMPHOCYTES % (AUTO) 20.9 % (20.0-45.0); MEAN CORPUSCULAR HEMOGLOBIN 30.7 PG (27.0-31.0); MEAN CORPUSCULAR HGB CONC 34.6 G/DL (32.0-36.0); MEAN CORPUSCULAR VOLUME 89 FL (80-99); MEAN PLATELET VOLUME 5.5 FL (6.5-10.1); MONOCYTES % (AUTO) 6.3 % (1.0-10.0); NEUTROPHILS % (AUTO) 70.9 % (45.0-75.0); PLATELET COUNT 262 K/UL (150-450); RED CELL DISTRIBUTION WIDTH 11.2 % (11.6-14.8); WHITE BLOOD COUNT 7.8 K/UL (4.8-10.8)
--- NOTE | 2016-12-08 16:29 | Emergency Room Report ---
History of Present Illness General Chief Complaint: Dyspnea/Respdistress Source: Patient Present Illness HPI The patient presents with 2 days of increasing shortness of breath. She states is more severe than when she was admitted November 11 with status asthmaticus. She has been using her inhaler and is taking prednisone at this time (3 pills a day). She denies any fevers or productive cough with colored phlegm. No chest pain, NVD, rashes, headache, dysuria, extremity swelling. Occasional gastritis pain. Chronic pain in back. She is an insulin dependent diabetic. States she has been taking insulin. Sugars might be high with steroids. Allergies: Coded Allergies: PENICILLINS (Verified Allergy, Unknown, 11/11/16) Patient History Past Medical History: see triage record Past Surgical History: appy, collin, hysterectomy Social History: Denies: smoking Social History Narrative at home - up from [place] Now: No Reviewed Nursing Documentation: PMH: Agreed, PSxH: Agreed Nursing Documentation-PMH Hx Hypertension: Yes Hx Asthma: Yes Hx Diabetes: Yes Hx Cancer: No Hx Gastrointestinal Problems: No Hx Neurological Problems: No Review of Systems All Other Systems: negative except mentioned in HPI Physical Exam Vital Signs Date Time Temp Pulse Resp B/P Pulse Ox O2 Delivery O2 Flow Rate FiO2 12/08/16 15:12 97.5 120 12 169/104 95 Room Air Sp02 EP Interpretation: reviewed, abnormal - interpreted as low by me General Appearance: GCS 15, mild distress Head: normocephalic Eyes: bilateral eye PERRL, bilateral eye normal inspection ENT: normal pharynx, moist mucus membranes Neck: supple Respiratory: decreased breath sounds, wheezing, expiration, inspiration Cardiovascular #1: regular rate, rhythm Cardiovascular #2: 2+ radial (R) Gastrointestinal: normal inspection, normal bowel sounds, non tender, no mass, non-distended Musculoskeletal: back normal, gait/station normal, normal range of motion Neurologic: alert, oriented x3, grossly normal Psychiatric: mood/affect normal Skin: normal inspection, warm/dry Procedures Critical Care Time Critical Care Time Total Critical Care Time: 30 min bedside evaluation and treatment excludes procedures (EKG). Reason for critical care: status asthmaticus, hyperglycemia, elevated lactate Possible complications: hypotension, hypertension, MN, shock, arrhythmias, metabolic acidosis, end organ damage, respiratory failure. Interventions: solumedrol, albuterol/atrovent, IV fluids, insulin, repeat evaluations Course: Patient with severe dyspnea. Aggressive treatment with solumedrol and beta agents. Hyperglycemia with mild acidosis - evaluation for possible DKA ( excluded). Elevated lactate. Aggressive hydration and insulin IV. Repeat evaluation with improvement. Consultations: nursing staff, family, respiratory Performed by: Dr. Montanez Tolerated well condition = serious Medical Decision Making Diagnostic Impression: Primary Impression: COPD exacerbation Additional Impressions: Hyperglycemia Elevated lactic acid level ER Course Patient presents with 2 days of dyspnea with wheezing reported severe. Ddx: asthma exacerbation, COPD, pneumonia, CHF, AMI amongst others. Emergent evaluation and treatment initiated. Eval with labs including blood cultures, lactate. EKG, CXR. Immediate tx with solumedrol and beta agents. Improved but still dyspneic and tachypneic. CXR no infiltrates. No indication for antibiotics. Elevated glucose. Bicarb 19. Lactate 3.7. Increase fluids. And insulin ordered. No ketones in urine (excludes DKA). O2 sat on RA is 100%, doubt PE. Glucose coming down. Patient improving. Admit Dr. Hector telemetry. Laboratory Tests Test 12/08/16 15:52 White Blood Count 7.8 K/UL (4.8-10.8) Red Blood Count 5.00 M/UL (4.20-5.40) Hemoglobin 15.3 G/DL (12.0-16.0) Hematocrit 44.4 % (37.0-47.0) Mean Corpuscular Volume 89 FL (80-99) Mean Corpuscular Hemoglobin 30.7 PG (27.0-31.0) Mean Corpuscular Hemoglobin Concent 34.6 G/DL (32.0-36.0) Red Cell Distribution Width 11.2 % (11.6-14.8) L Platelet Count 262 K/UL (150-450) Mean Platelet Volume 5.5 FL (6.5-10.1) L Neutrophils (%) (Auto) 70.9 % (45.0-75.0) Lymphocytes (%) (Auto) 20.9 % (20.0-45.0) Monocytes (%) (Auto) 6.3 % (1.0-10.0) Eosinophils (%) (Auto) 0.8 % (0.0-3.0) Basophils (%) (Auto) 1.2 % (0.0-2.0) Prothrombin Time 9.7 SEC (9.30-11.50) Prothrombin Time INR 1.0 (0.9-1.1) PTT 22 SEC (23-33) L Urine Color Pale yellow Urine Appearance Clear Urine pH 6 (4.5-8.0) Urine Specific [place] 1.010 (1.005-1.035) Urine Protein Negative (NEGATIVE) Urine Glucose (UA) 4+ (NEGATIVE) H Urine Ketones Negative (NEGATIVE) Urine Occult Blood Negative (NEGATIVE) Urine Nitrite Negative (NEGATIVE) Urine Bilirubin Negative (NEGATIVE) Urine Urobilinogen Normal MG/DL (0.0-1.0) Urine Leukocyte Esterase Negative (NEGATIVE) Sodium Level 130 mEQ/L (135-145) L Potassium Level 4.5 mEQ/L (3.4-4.9) Chloride Level 85 mEQ/L (98-107) L Carbon Dioxide Level 19 mEQ/L (20-30) L Anion Gap 26 (5-15) H Blood Urea Nitrogen 21 mg/dL (7-23) Creatinine 1.1 mg/dL (0.5-0.9) H Estimate Glomerular Filtration Rate > 60 mL/min (>60) Glucose Level 545 mg/dL (74-106) *H Lactic Acid Level 3.70 mmol/L (0.66-2.22) H Calcium Level 9.9 mg/dL (8.6-10.2) Total Bilirubin 0.4 mg/dL (0.0-1.2) Aspartate Amino Transferase (AST) 28 U/L (5-40) Alanine Aminotransferase (ALT) 36 U/L (3-33) H Alkaline Phosphatase 79 U/L (35-104) Total Creatine Kinase 43 U/L (26-140) Troponin I < 0.30 ng/mL (<=0.30) Pro-B-Type Natriuretic Peptide Pending Total Protein 7.2 g/dL (6.6-8.7) Albumin 4.5 g/dL (3.5-5.2) Globulin 2.7 g/dL Albumin/Globulin Ratio 1.6 (1.0-2.7) Microbiology Date/Time Source Procedure Growth Status 12/08/16 16:17 Nasal Nares Influenza Types A,B Antigen (JOSE E) - Final Complete EKG Diagnostic Results Rate: tachycardiac ST Segments: no acute changes Rhythm Strip Diag. Results EP Interpretation: yes Rhythm: no PVC's, no ectopy, other - ST Chest X-Ray Diagnostic Results EP Interpretation: Yes Findings: no consolidation, no effusion, no pneumothorax, no acute cardiopulmonary disease Number of Views: 1 Last Vital Signs Date Time Temp Pulse Resp B/P Pulse Ox O2 Delivery O2 Flow Rate FiO2 12/09/16 04:06 98.4 92 18 133/74 100 Room Air 12/09/16 03:00 2.0 Status: improved Disposition: ADMITTED INPATIENT Condition: Serious Referrals: NOT CHOSEN IPA/,REFERRING (PCP) Mynor Montanez M.D. Dec 08, 2016 16:29
[2016-12-08 16:30] LABS: APPEARANCE,URINE CLEAR; KETONES,URINE NEGATIVE (NEGATIVE); LEUKOCYTE ESTERASE ,URINE NEGATIVE (NEGATIVE); NITRITE,URINE NEGATIVE (NEGATIVE); PH,URINE 6 (4.5-8.0); PROTEIN,URINE NEGATIVE (NEGATIVE); UROBILINOGEN,URINE NORMAL MG/DL (0.0-1.0)
[2016-12-08 16:33] LABS: PROTHROMBIN TIME 9.7 SEC (9.30-11.50)
[2016-12-08 16:40] LABS: TROPONIN I < 0.30 ng/mL (<=0.30)
[2016-12-08 16:42] LABS: ALANINE AMINOTRANSFERASE 36 U/L (3-33); ALBUMIN/GLOBULIN RATIO 1.6 (1.0-2.7); ANION GAP 26 (5-15); ASPARTATE AMINO TRANSFERASE 28 U/L (5-40); CALCIUM 9.9 mg/dL (8.6-10.2); CARBON DIOXIDE 19 mEQ/L (20-30); CHLORIDE 85 mEQ/L (98-107); CREATININE 1.1 mg/dL (0.5-0.9); GLOMERULAR FILTRATION RATE > 60 mL/min (>60); HEMOLYSIS 136; POTASSIUM 4.5 mEQ/L (3.4-4.9); SODIUM 130 mEQ/L (135-145); TOTAL PROTEIN 7.2 g/dL (6.6-8.7)
[2016-12-08 16:43] LABS: REFLEX LACTIC ACID YES OR NO YES
[2016-12-08 17:01] VITALS: BP 113/79
[2016-12-08] MEDS ORDERED: NASONEX17 GM NASAL (17:04)
[2016-12-08 18:07] VITALS: BP 123/80
[2016-12-08 18:52] VITALS: BP 146/76
[2016-12-08] MEDS ORDERED: DuoNeb 0.5-3(2.5)mg/3ml neb HHN PRN (19:30)
[2016-12-08] MEDS ORDERED: Cyclobenzaprine 10mg Tab ORAL PRN (19:30)
[2016-12-08] MEDS ORDERED: Zolpidem 5mg tab ORAL PRN (19:45)
[2016-12-08] MEDS ORDERED: Triamcinolone 0.1% 15gm Cr TOPIC PRN (19:45)
[2016-12-08] MEDS ORDERED: Milk of Magnesia 30ml Ud ORAL PRN (19:45)
[2016-12-08 20:00] VITALS: BP 124/50
[2016-12-08] MEDS ORDERED: Flonase Nasal Inhaler 16gm NASAL PRN (20:00)
[2016-12-08] MEDS ORDERED: Flovent 44mcg Inhaler 10.6gm INH PRN (20:30)
[2016-12-08] MEDS ORDERED: Levemir Flexpen SUBQ SCH (21:00)
[2016-12-08] MEDS: Heparin 5000 units/ml inj SUBQ SCH (21:25)
[2016-12-08] MEDS: NovoLOG Insulin Flexpen SUBQ SCH ×2 (21:26→21:27)
[2016-12-08 22:00] LABS: CALCIUM 9.3 mg/dL (8.6-10.2); CREATININE 1.2 mg/dL (0.5-0.9); GLOMERULAR FILTRATION RATE 55.8 mL/min (>60); POTASSIUM 4.2 mEQ/L (3.4-4.9)
[2016-12-08] MEDS ORDERED: NovoLOG Insulin Flexpen SUBQ ONE (23:00)
[2016-12-08] MEDS: DuoNeb 0.5-3(2.5)mg/3ml neb HHN SCH (23:43)
[2016-12-09] VITALS (7 sets, daily range): BP systolic 106–151; BP diastolic 65–96
[2016-12-09] MEDS: DuoNeb 0.5-3(2.5)mg/3ml neb HHN SCH ×6 (03:48→23:08)
[2016-12-09] MEDS: GlipiZIDE 10mg tab ORAL SCH ×2 (06:11→16:16)
[2016-12-09] MEDS: traMADol 50mg tab ORAL PRN ×2 (06:12→16:24)
[2016-12-09] MEDS: NovoLOG Insulin Flexpen SUBQ SCH ×6 (08:03→18:30)
[2016-12-09] MEDS ORDERED: NovoLOG Insulin Flexpen SUBQ SCH (09:00)
[2016-12-09] MEDS: Heparin 5000 units/ml inj SUBQ SCH ×2 (09:24→20:39)
[2016-12-09] MEDS: Metoprolol Tartrate 12.5mg TAB ORAL SCH ×2 (09:25→18:28)
[2016-12-09] MEDS: PredniSONE 20mg tab ORAL SCH (09:26)
[2016-12-09] MEDS: metFORMIN 500mg tab ORAL SCH ×2 (09:26→18:28)
[2016-12-09] MEDS: Aspirin EC 81mg tab ORAL SCH (09:27)
[2016-12-09] MEDS: Losartan 50mg tab ORAL SCH (09:27)
[2016-12-09] MEDS: QVAR 80mcg Inh - 8.7gm INH SCH ×2 (10:20→19:15)
--- NOTE | 2016-12-09 12:18 | Cardiology Report ---
APPROVED REPORT EKG Measurement Heart [id number] Sinus tachycardia Otherwise normal ECG
--- NOTE | 2016-12-09 18:05 | Consultation ---
Consult Note Assessment/Plan [address], [place] [address] CONSULTATION Date of Service: Dec 09, 2016 Consult Note Consult Note Patient: MAYELIN CANELA [facility] Rec #: [id number] DATE OF CONSULT: 12/19/2016 REASON FOR CONSULT: Asthma, wheezing, status asthmaticus. HISTORY OF PRESENT ILLNESS: The patient has a long history of asthma. She was taking inhalers and nebulizers and started on prednisone for a day or two prior to admission, but continued wheezing, coughing and feeling bad and came to the emergency room, was felt to be in status asthmaticus and admitted. She was hospitalized for a similar illness a month ago here. PAST MEDICAL HISTORY: The patient has a history of obesity, osteoarthritis, sciatica, chronic pain, insulin-dependent diabetes, hypertension. PAST SURGICAL HISTORY: Hysterectomy, gallbladder, and appendix. MEDICATIONS: Prior to admission medications include Lantus 50 units two times a day, NovoLog 30 units three times a day, albuterol via inhalation by HHN and inhaler, amitriptyline, aspirin, QVAR, Flexeril, Benadryl, Advair, gabapentin, glipizide, hydrochlorothiazide, ibuprofen, Duo-Neb by inhalation, losartan, metformin, omeprazole, prednisone, tramadol, and triamcinolone cream. PMH Diabetes Asthma ALLERGIES: PCN REVIEW OF SYSTEMS: HEENT: None Endocrine: History of diabetes and obesity. No known thyroid disease. Pulmonary: See above. No known TB. Cardiac: No definite angina, IN or CHF. Gastrointestinal: No GI bleeding or ulcers. She has had some gastritis intermittently. Genitourinary: No dysuria, hematuria, or kidney stones. Neurologic: No CVA, syncope or seizures. Musculoskeletal: History of chronic pain in the joints and back pain. Never smoked PHYSICAL EXAMINATION: GENERAL: The patient is alert, oriented, and in no acute distress. She has a cough. VITAL SIGNS: Temperature 98 degrees, pulse 106, respirations 19, blood pressure 116/87, pulse oximetry 95% on room air. HEENT: Sclerae are nonicteric. Ocular motions intact in all directions. Oral mucosa moist. NECK: No adenopathy or thyroid enlargement. LUNGS: Bilateral wheezing. She has a dry cough, but no severe distress. HEART: Rhythm is regular. No murmur. ABDOMEN: Obese and soft without organomegaly or masses. EXTREMITIES: No edema, cyanosis, or clubbing. No swollen joints. NEUROLOGIC: She is alert and oriented. Cranial nerves are intact. LABORATORY AND DIAGNOSTIC DATA: Pertinent labs were reviewed. The BS is >500. Chest x-ray, no active disease. IMPRESSION: 1. Asthma exacerbation, acute 2. Insulin-dependent diabetes, severe hyperglycemia. 3. Hypertension. 4. Chronic pain syndrome, osteoarthritis. PLAN: Agree with steroids, adjust insulin, nebulizer treatment, abx. Will follow, thanks, MD ABIEL Johnson MICHAEL Dec 09, 2016 18:05
[2016-12-09] MEDS: Levemir Flexpen SUBQ SCH (18:30)
--- NOTE | 2016-12-09 22:39 | History and Physical Report ---
DATE OF ADMISSION: 12/08/2016 CHIEF COMPLAINT AND REASON FOR HOSPITALIZATION: The patient was admitted with uncontrolled asthma and markedly elevated glucose. HISTORY OF PRESENT ILLNESS: The patient has a history of severe asthma and recurrent hospitalization. She was hospitalized here on 11/11/2016 to 11/13/2016 with status asthmaticus and apparently since that time has been in [facility]. She recently moved to the [facility] from [place] and is considering moving again soon. Despite taking inhalers and nebulizer treatments every 4 hours and every 2 hours p.r.n. distress she presented with worsening shortness of breath and cough and wheezing. She had been on prednisone on a prior hospitalization here and was tapered off and started again a few days ago. It is not clear of the dose but likely 40 mg a day and I cut down to 20 mg a day or two prior to this admission. She says she takes her medicines regularly at home. She has had a cough and nonproductive. No fever or chills. SURGERIES: Hysterectomy, gallbladder and appendix. PAST MEDICAL HISTORY: Include obesity, osteoarthritis, sciatica, chronic pain, insulin-dependent diabetes and hypertension. MEDICATIONS: Prior to admission medications include Lantus 50 units b.i.d. NovoLog 30 units t.i.d. with meals. She also takes albuterol via HHN q.2 to 4 hours. Albuterol inhaler q.2 to 4 hours, QVAR b.i.d., Advair b.i.d., which she ran out of, amitriptyline, Flexeril, Benadryl, gabapentin, glipizide, hydrochlorothiazide, ibuprofen, losartan, metformin, omeprazole, tramadol and triamcinolone. ALLERGIES: Penicillin causes yeast infections. SYSTEM REVIEW: HEAD, EYES, EARS, NOSE, AND THROAT: Vision and hearing is good. ENDOCRINE: History of diabetes and obesity. She says her sugars were generally well controlled prior to coming in. PULMONARY: History of asthma. No known TB. CARDIAC: No definite angina or myocardial infarction. She has some chest tightness with asthma. GASTROINTESTINAL: No ulcers or GI bleeding. She has intermittent dyspepsia. GENITOURINARY: No dysuria or hematuria. NEUROLOGIC: No CVA or seizures. MUSCULOSKELETAL: She has chronic back and joint pain. PHYSICAL EXAMINATION: GENERAL: The patient is alert lady, chronically ill appearing, and wearing oxygen. VITAL SIGNS: Temperature 97.3 degrees, pulse 84, respirations 18, blood pressure 124/70, and pulse oximetry 98%. HEAD, EYES, EARS, NOSE AND THROAT: Sclerae are nonicteric. Ocular motions intact in all directions. Oral mucosa is moist. Perhaps 1 mm white patches is not clear if this is true a yeast. LUNGS: Bilateral wheezing. There is no intercostal retractions. HEART: Rhythm is regular. No murmur. ABDOMEN: Obese and soft. No organomegaly or masses. EXTREMITIES: No edema, cyanosis, or clubbing. There are degenerative changes in the knees. NEUROLOGIC: She is alert and oriented. Cranial nerves are intact. IMPRESSION: 1. Status asthmaticus recurrent exacerbation. 2. Insulin-dependent diabetes with hyperglycemia. Glucose is high as 586 in the past 24 hours. 3. Hypertension. 4. Osteoarthritis. 5. Chronic pain. PLAN: The patient will be placed on steroids and nebulizer treatment and adjustment of her insulin. In view of her current hospitalizations, we will educate her and arrange for follow up care if possible. Social service will be involved. We will watch closely in view of her comorbidities. Tomas Hector M.D. DR: KULDIP JOB#: [id number] CC:
[2016-12-10] VITALS: BP 106/57
[2016-12-10] MEDS: DuoNeb 0.5-3(2.5)mg/3ml neb HHN SCH ×5 (03:00→19:25)
[2016-12-10 04:00] VITALS: BP 96/54
[2016-12-10] MEDS: NovoLOG Insulin Flexpen SUBQ SCH ×6 (06:30→17:50)
[2016-12-10] MEDS: GlipiZIDE 10mg tab ORAL SCH ×2 (07:10→16:14)
[2016-12-10] MEDS: QVAR 80mcg Inh - 8.7gm INH SCH ×2 (07:30→19:27)
[2016-12-10 08:00] VITALS: BP 99/58
[2016-12-10 08:01] LABS: BASOPHILS % (AUTO) 0.8 % (0.0-2.0); EOSINOPHILS % (AUTO) 1.2 % (0.0-3.0); LYMPHOCYTES % (AUTO) 26.8 % (20.0-45.0); MEAN CORPUSCULAR HEMOGLOBIN 30.6 PG (27.0-31.0); MEAN CORPUSCULAR HGB CONC 33.5 G/DL (32.0-36.0); MEAN CORPUSCULAR VOLUME 91 FL (80-99); MEAN PLATELET VOLUME 5.5 FL (6.5-10.1); MONOCYTES % (AUTO) 5.2 % (1.0-10.0); NEUTROPHILS % (AUTO) 66.1 % (45.0-75.0); PLATELET COUNT 211 K/UL (150-450); RED BLOOD COUNT 4.42 M/UL (4.20-5.40); RED CELL DISTRIBUTION WIDTH 11.4 % (11.6-14.8)
[2016-12-10 08:12] LABS: ANION GAP 14 (5-15); CALCIUM 8.8 mg/dL (8.6-10.2); CARBON DIOXIDE 27 mEQ/L (20-30); CHLORIDE 97 mEQ/L (98-107); CREATININE 0.9 mg/dL (0.5-0.9); GLOMERULAR FILTRATION RATE > 60 mL/min (>60); HEMOLYSIS 7; POTASSIUM 4.2 mEQ/L (3.4-4.9); SODIUM 138 mEQ/L (135-145)
[2016-12-10] MEDS: Losartan 50mg tab ORAL SCH (09:00)
[2016-12-10] MEDS: Heparin 5000 units/ml inj SUBQ SCH (09:00)
[2016-12-10] MEDS: Levemir Flexpen SUBQ SCH ×2 (09:00→17:52)
[2016-12-10] MEDS: Metoprolol Tartrate 12.5mg TAB ORAL SCH ×2 (09:00→17:47)
[2016-12-10] MEDS: PredniSONE 20mg tab ORAL SCH (09:01)
[2016-12-10] MEDS: metFORMIN 500mg tab ORAL SCH ×2 (09:01→17:48)
[2016-12-10] MEDS: Aspirin EC 81mg tab ORAL SCH (09:02)
[2016-12-10] MEDS: traMADol 50mg tab ORAL PRN (10:24)
[2016-12-10 12:00] VITALS: BP 101/62
--- NOTE | 2016-12-10 12:56 | Diagnostic Imaging Report ---
Indication: COUGH Technique: One view of the chest Comparison: 12/08/2016 Findings: Lungs and pleural spaces are clear. Heart size is normal. No significant change Impression: No acute process This agrees with the preliminary interpretation provided by the emergency room physician
--- NOTE | 2016-12-10 13:15 | Pulmonology Progress Note ---
Assessment/Plan Assessment/Plan 1. Asthma exacerbation, acute 2. Insulin-dependent diabetes, severe hyperglycemia. 3. Hypertension. 4. Chronic pain syndrome, osteoarthritis. doing better not SOB asks about dc home taper steroids PO HHN at home Subjective Constitutional: Denies: fever Respiratory: Reports: productive cough, Denies: dyspnea at rest, shortness of breath Allergies: Coded Allergies: PENICILLINS (Verified Allergy, Unknown, 11/11/16) Objective Last 24 Hour Vital Signs Date Time Temp Pulse Resp B/P Pulse Ox O2 Delivery O2 Flow Rate FiO2 12/10/16 11:12 83 18 100 Nasal Cannula 2.0 28 12/10/16 11:03 76 18 98 Nasal Cannula 2.0 28 12/10/16 08:00 96.6 89 17 99/58 98 Room Air 12/10/16 08:00 84 12/10/16 07:37 83 18 100 Nasal Cannula 2.0 28 12/10/16 07:36 Nasal Cannula 2.0 28 12/10/16 07:26 78 18 98 Nasal Cannula 2.0 28 12/10/16 07:25 98 Nasal Cannula 2.0 28 12/10/16 07:25 78 18 Nasal Cannula 2.0 28 12/10/16 04:00 97.0 74 16 96/54 97 Room Air 12/10/16 04:00 78 12/10/16 03:45 98 20 100 Nasal Cannula 2.0 28 12/10/16 03:30 95 20 98 Nasal Cannula 2.0 28 12/10/16 00:00 97.7 99 16 106/57 95 Nasal Cannula 2.0 12/10/16 00:00 95 12/09/16 23:09 97 20 98 Nasal Cannula 2.0 28 12/09/16 23:09 100 20 100 Nasal Cannula 2.0 28 12/09/16 20:00 84 12/09/16 20:00 97.8 82 20 114/68 99 Nasal Cannula 2.0 12/09/16 19:20 102 20 100 Nasal Cannula 2.0 28 12/09/16 19:18 99 20 99 Nasal Cannula 2.0 28 12/09/16 19:18 102 20 100 Nasal Cannula 2.0 28 12/09/16 19:17 99 20 98 Nasal Cannula 2.0 28 12/09/16 18:28 106 103/69 12/09/16 16:00 102 12/09/16 16:00 97.6 101 21 106/69 100 Nasal Cannula 2.0 12/09/16 15:20 89 19 98 Nasal Cannula 2.0 28 12/09/16 15:08 28 12/09/16 15:08 86 19 98 Nasal Cannula 2.0 28 Intake and Output 12/09/16 12/10/16 19:00 07:00 Intake Total 690 ml 540 ml Balance 690 ml 540 ml Intake Oral 690 ml 540 ml # Voids 5 2 HEENT: atraumatic Respiratory/Chest: lungs clear Cardiovascular: normal rate Microbiology Date/Time Source Procedure Growth Status 12/08/16 16:30 Blood Blood Culture - Preliminary NO GROWTH AFTER 24 HOURS Resulted 12/08/16 16:15 Blood Blood Culture - Preliminary NO GROWTH AFTER 24 HOURS Resulted 12/08/16 16:17 Nasal Nares Influenza Types A,B Antigen (JOSE E) - Final Complete Laboratory Tests 12/10/16 07:35: White Blood Count 11.0H, Red Blood Count 4.42, Hemoglobin 13.6, Hematocrit 40.4 , Mean Corpuscular Volume 91, Mean Corpuscular Hemoglobin 30.6, Mean Corpuscular Hemoglobin Concent 33.5, Red Cell Distribution Width 11.4L, Platelet Count 211, Mean Platelet Volume 5.5L, Neutrophils (%) (Auto) 66.1, Lymphocytes (%) (Auto) 26.8, Monocytes (%) (Auto) 5.2, Eosinophils (%) (Auto) 1.2, Basophils (%) (Auto) 0.8, Sodium Level 138, Potassium Level 4.2, Chloride Level 97L, Carbon Dioxide Level 27, Anion Gap 14, Blood Urea Nitrogen 21, Creatinine 0.9, Estimat Glomerular Filtration Rate > 60, Glucose Level 119#H, Calcium Level 8.8 Current Medications Medications (Trade) Dose Ordered Sig/Chelsey Route PRN Reason Start Time Stop Time Status Last Admin Dose Admin Acetaminophen (Tylenol) 650 mg Q4H PRN ORAL Mild Pain/Temp > 100.5 12/08/16 19:45 01/07/17 19:44 Al Hydroxide/Mg Hydroxide (Mylanta) 30 ml Q3HR PRN ORAL INDIGESTION 12/08/16 19:45 01/07/17 19:44 Albuterol/ Ipratropium (DuoNeb 0.5-3(2.5)mg/3ml) 3 ml EVERY 2 HOURS PRN HHN Shortness of Breath 12/08/16 19:30 12/13/16 19:29 Albuterol/ Ipratropium (DuoNeb 0.5-3(2.5)mg/3ml) 3 ml Q4HRT HHN 12/08/16 23:00 12/13/16 22:59 12/10/16 11:09 Amitriptyline HCl (Elavil) 25 mg BEDTIME ORAL 12/08/16 21:00 01/07/17 20:59 12/09/16 20:36 Aspirin (Ecotrin) 81 mg DAILY ORAL 12/09/16 09:00 01/08/17 08:59 12/10/16 09:02 Beclomethasone Dipropionate (Qvar 80) 2 puff TWICE A DAY INH 12/09/16 09:00 01/08/17 08:59 12/10/16 07:30 Cyclobenzaprine HCl (Flexeril) 10 mg TIDPRN PRN ORAL Muscle Spasm 12/08/16 19:30 01/07/17 19:29 Dextrose (Dextrose 50%) STAT PRN IV Hypoglycemia 12/08/16 20:00 01/07/17 19:59 Fluticasone Propionate (Flonase) 1 spray DAILY PRN NASAL allergic rhinitis 12/08/16 20:00 01/07/17 19:59 Glipizide (Glucotrol) 10 mg BIAC ORAL 12/09/16 06:30 01/08/17 06:29 12/10/16 07:10 Heparin Sodium (Porcine) (Heparin 5000 units/ml) 5,000 units EVERY 12 HOURS SUBQ 12/08/16 21:00 01/07/17 20:59 12/10/16 09:00 Hydrochlorothiazide (Hydrodiuril) 12.5 mg DAILY ORAL 12/09/16 09:00 01/08/17 08:59 12/10/16 09:13 Ibuprofen (Motrin) 800 mg TID PRN ORAL For Pain 12/08/16 19:30 01/07/17 19:29 12/09/16 16:25 Insulin Aspart (NovoLOG) TIAC SUBQ 12/08/16 21:00 01/07/17 20:59 12/10/16 12:47 Insulin Aspart (NovoLOG) 35 units THREE TIMES A DAY SUBQ 12/09/16 18:30 01/08/17 18:29 12/10/16 12:47 Insulin Detemir (Levemir) 60 units BID SUBQ 12/09/16 19:00 01/08/17 18:59 12/10/16 09:00 Losartan Potassium (Cozaar) 50 mg DAILY ORAL 12/09/16 09:00 01/08/17 08:59 12/09/16 09:27 Magnesium Hydroxide (Mom) 30 ml DAILYPRN PRN ORAL Constipation 12/08/16 19:45 01/07/17 19:44 Metformin HCl (Glucophage) 1,000 mg BID ORAL 12/09/16 09:00 01/08/17 08:59 12/10/16 09:01 Metoprolol Tartrate (Lopressor) 12.5 mg BID ORAL 12/09/16 09:00 01/08/17 08:59 12/09/16 18:28 Prednisone (predniSONE) 40 mg DAILY ORAL 12/09/16 09:00 01/08/17 08:59 12/10/16 09:01 Tramadol HCl (Ultram) 50 mg Q4HR PRN ORAL Moderate Pain (Pain Scale 4-6) 12/08/16 19:45 12/15/16 19:44 12/10/16 10:24 Triamcinolone Acetonide (Kenalog) 1 applic BID PRN TOPIC Itching 12/08/16 19:45 01/07/17 19:44 Zolpidem Tartrate (Ambien) 5 mg HSPRN PRN ORAL Insomnia 12/08/16 19:45 01/07/17 19:44 ИРИНА BEEBE Dec 10, 2016 13:15
[2016-12-10 16:00] VITALS: BP 126/54
[2016-12-10 17:47] VITALS: BP 127/78
[2016-12-10] MEDS ORDERED: LANTUS SOL100 UNIT/1 SUBQ (19:28)
[2016-12-10] MEDS ORDERED: NOVOLOG100 UNIT/5 SQ (19:28)
[2016-12-10] MEDS ORDERED: NovoLOG Insulin Flexpen SUBQ ONE (19:30)
--- NOTE | 2016-12-11 01:39 | Discharge Summary ---
DATE OF ADMISSION: 12/08/2016 DATE OF DISCHARGE: 12/10/2016 PERTINENT HISTORY: The patient has a history of asthma, recurrent hospitalizations, and insulin-dependent diabetes. She started prednisone again when she has had increasing wheezing and could not manage it at home and presented to the emergency room. PERTINENT PHYSICAL FINDINGS: GENERAL: The patient is alert. HEENT: Oral mucosa is moist. There is some minimal irritation in the throat. LUNGS: Bilateral wheezing. HEART: Regular rhythm. ABDOMEN: Obese and soft. EXTREMITIES: No edema. COURSE IN THE HOSPITAL: The patient was given Solu-Medrol in the emergency room and prednisolone 40 mg daily. Her glucose was monitored. She had hyperglycemia and her insulin was adjusted. On 12/10/2016, she felt better without any shortness of breath. Her lungs showed distant breath sounds, but no wheezing. Heart, regular rhythm. Abdomen, soft. Extremities, no edema. She has glucose intolerance. She was given detailed instructions since she has long-term insulin-dependent diabetes and was able to manage her insulin at home. FINAL DIAGNOSES: 1. Status asthmaticus. 2. Insulin-dependent diabetes with hyperglycemia, induced by steroids. 3. Osteoarthritis. 4. Hypertension. DISCHARGE DISPOSITION: She was discharged to home on a diabetic diet. DISCHARGE MEDICATIONS: Per the discharge medication list. Her prednisone will be tapered as follows, 40 mg on 12/11/2016 and 20 mg daily for four days, and then 10 mg daily. Social service was contacted to help to find a primary care physician in [facility], who is contracted with her insurance. Tomas Hector M.D. DR: Les JOB#: [id number] CC:
== END 2016-12-10 20:10 | disposition home or self-care (01) | DRG 141 ==
LOC: EMR 15:39 → 2E 16:00 → EDBEDREQ 17:23
DX: J45.902 Unspecified asthma with status asthmaticus (principal); E11.65 Type 2 diabetes mellitus with hyperglycemia; I10 Essential (primary) hypertension; M19.90 Unspecified osteoarthritis, unspecified site; Z79.4 Long term (current) use of insulin; G89.4 Chronic pain syndrome; M54.9 Dorsalgia, unspecified
CPT/HCPCS: 36415; 71010; 80048; 80053; 81003; 82550; 82962; 83605; 83880; 84484; 85025; 85610; 85730; 86710; 87040; 93005; 94640; 94664; 94760; J1815; J7620; S5561

== ENCOUNTER 2016-12-31 09:52 | Emergency (ER) | payer MEDICAID ==
[~2016-12-31] VITALS: Ht 160 cm; Wt 70.3 kg
[~2016-12-31 09:52] MED LIST changes: +NASONEX17 GM NASAL; +NOVOLOG100 UNIT/5 SQ
[2016-12-31] MEDS ORDERED: Albuterol ud Inhalation HHN ONE (10:45)
[2016-12-31 11:36] VITALS: BP 135/76
[2016-12-31] MEDS ORDERED: PREDNISONE10 M2 PO (11:47)
--- NOTE | 2016-12-31 11:55 | Diagnostic Imaging Report ---
Indication: SOB, chest pain Technique: One view of the chest Comparison: 12/08/2016 Findings: Lungs and pleural spaces are clear. Heart size is normal. No significant change Impression: No acute process
[2016-12-31 12:44] VITALS: BP 135/76
--- NOTE | 2016-12-31 14:04 | Emergency Room Report ---
History of Present Illness General Chief Complaint: Upper Respiratory Illness Source: Patient Present Illness HPI 61YO F with known asthma, non smoker walk-in with 3 days dry cough, sore throat , rhinorrhea. Denies fever/chills, chest pain, SOB, abd pain. Using home nebulizers PRN. No recent hospitalization. Allergies: Coded Allergies: PENICILLINS (Verified Allergy, Unknown, 11/11/16) Patient History Past Medical History: asthma Past Surgical History: none Pertinent Family History: none Social History: Reports: smoking, Denies: alcohol use, drug use Last Menstrual Period: na Now: No Immunizations: UTD Reviewed Nursing Documentation: PMH: Agreed, PSxH: Agreed Nursing Documentation-PMH Past Medical History: No History, Except For Hx Cardiac Problems: Yes Hx Hypertension: Yes Hx Asthma: Yes Hx Diabetes: Yes Hx Cancer: No Hx Gastrointestinal Problems: No Hx Neurological Problems: No Review of Systems All Other Systems: negative except mentioned in HPI Physical Exam Vital Signs Date Time Temp Pulse Resp B/P Pulse Ox O2 Delivery O2 Flow Rate FiO2 12/31/16 09:53 98.4 119 22 146/82 99 Room Air Sp02 EP Interpretation: reviewed, normal General Appearance: normal inspection, well appearing, no apparent distress, alert, GCS 15, non-toxic Head: normocephalic, atraumatic Eyes: bilateral eye EOMI, bilateral eye PERRL ENT: normal ENT inspection, hearing grossly normal, normal voice, TMs + canals normal, uvula midline, moist mucus membranes, nasal congestion Neck: normal inspection, full range of motion, supple, no bony tend Respiratory: normal inspection, lungs clear, normal breath sounds, no respiratory distress, no retraction, no accessory muscle use, wheezing Cardiovascular #1: regular rate, rhythm, no edema Gastrointestinal: normal inspection, normal bowel sounds, non tender, soft, no guarding, no hernia Genitourinary: no CVA tenderness Musculoskeletal: normal inspection, back normal, normal range of motion, Ilana' s Sign negative Neurologic: normal inspection, alert, oriented x3, responsive, speech normal Psychiatric: normal inspection, judgement/insight normal, mood/affect normal Skin: normal inspection, normal color, no rash Lymphatic: normal inspection Medical Decision Making Diagnostic Impression: Primary Impression: Upper respiratory infection Qualified Codes: J06.9 - Acute upper respiratory infection, unspecified; B97.89 - Other viral agents as the cause of diseases classified elsewhere ER Course Likely URI. VSS. Afebrile No sign of bacterial infection in oropharynx, lungs, ears Possibly assoc bronchitis Lungs CTAB after albuterol Constellation of rhinorrhea, cough, congestion is likely viral CXR does not show PNA Rx Prednisone Patient endorses having enough of her asthma meds PMD followup Chest X-Ray Diagnostic Results EP Interpretation: Yes Findings: no consolidation, no effusion, no pneumothorax, no acute cardiopulmonary disease Number of Views: 1 Last Vital Signs Date Time Temp Pulse Resp B/P Pulse Ox O2 Delivery O2 Flow Rate FiO2 12/31/16 12:44 98.4 20 135/76 99 Room Air 12/31/16 11:36 114 Status: improved Disposition: HOME, SELF-CARE Condition: Improved Scripts Prednisone (PREDNISONE) 10 Mg Tab.ds.pk 20 MG PO BID for 3 Days, #6 PACK Prov: ИРИНА LAN M.D. 12/31/16 Referrals: NON PHYSICIAN (PCP) Patient Instructions: Upper Respiratory Infection, Adult Additional Instructions: - Take prednisone 20mg twice daily for next 3 days - Use home albuterol as needed for cough - If no improvement, followup with your [facility] doctor in 3 days ИРИНА LAN M.D. Dec 31, 2016 14:04
== END 2016-12-31 12:44 | disposition home or self-care (01) ==
LOC: EMR 11:30
DX: J06.9 Acute upper respiratory infection, unspecified (principal); J45.909 Unspecified asthma, uncomplicated; E11.9 Type 2 diabetes mellitus without complications; I10 Essential (primary) hypertension; Z88.0 Allergy status to penicillin
CPT/HCPCS: 71010; 94664; 99283